=== PATIENT | female | born 1950 | race Caucasian/White ===

== ENCOUNTER → 2017-04-01 | Outpatient (CLI) | payer MEDICARE ==
[~2017-04-01] MED LIST: CALC600T60 PO; CALCCHW19 PO; LISI-542 PO; PANT40TA2 PO; PROAAER10 INH; VITA20008 PO
--- NOTE | 2017-04-01 14:31 | REP ---
Clinical: Cough . Comparison: 08/07/2013 . Technique: PA and lateral. Findings: The mediastinum and cardiac silhouette are normal. The lung perez are clear and without acute consolidation, effusion, or pneumothorax. The skeletal structures are intact and normal. Impression: 1. No acute cardiopulmonary process. Signed by Sreekanth Chun MD 04/01/2017 02:23 P
== END ==
LOC: M WUC 13:20
PROVIDERS: ATTEND Physician Assistant
DX: R05 Cough (principal)

== ENCOUNTER 2017-06-01 06:36 | Day surgery (SDC) | payer MEDICARE ==
--- NOTE | 2017-05-20 22:54 | CR ---
DATE OF CONSULTATION: 05/10/2017 DATE OF PLANNED ADMISSION: 06/01/2017 REFERRING PHYSICIAN: Dr. Light REASON FOR CONSULTATION: Right cataract extraction 06/01/2017 at [facility]. Dear Dr. Light, Thank you for asking me to see Ms. Vicki Garsia in consultation prior to her cataract extraction. She is as you know, a 66-year-old female with past medical history of hypertension, hyperlipidemia, presenting for preop optimization. The patient reports she has had recurrent bronchitis, originally seen in Urgent Care 03/08/2017; treated with prednisone, clarithromycin, and ProAir. She believes she recovered, but relapsed 04/01/2017 and was seen in Urgent Care again and placed on prednisone. She reports she believes she improved at that point too, but she is again coughing, sneezing rhinitis. She denies any fevers or chills. She denies any chest pain. She is easily dyspneic and quite inactive, which she reports is her normal way of life particularly in the summer time when [place] social[place]. She admits that she smokes at least eight cigarettes a day since she was 12-year-old. She was given a ProAir at one of urgent care visits. She has not been using this. The patient has hypertension. Denies any chest pain or palpitations. The patient has had a decline in her vision. She has previously been seen by neurology as well as ophthalmology and of course is proceeding with the cataract extraction. Patient has history of dyspepsia, is on pantoprazole with good results. The patient otherwise denies any nausea or vomiting, change in bowels. She has occasional arthritic symptoms, but has no other new complaints. PAST MEDICAL HISTORY: 1. Hyperlipidemia. 2. Osteoarthritis, degenerative joint disease (DJD). 3. Varicose veins. 4. Tobacco abuse. 5. Post laparoscopic appendectomy. 6. Osteopenia with a history of fractures. 7. Hypertension. MEDICATIONS: The patient's medications are calcium plus D daily, vitamin D3 2000 daily, lisinopril HCT 10/12.5 daily, pantoprazole 40 mg daily, Tylenol as needed (p.r.n.). SOCIAL HISTORY: She is retired from [employer], civilian, single; smokes the eight cigarettes a day, occasional beer. FAMILY HISTORY: Father at 59 of stroke. He had coronary artery disease (CAD). Mother at 78 in a motor vehicle accident. She had heart disease and hypertension. Brother had COPD and an aneurysm. DRUG ALLERGIES: Penicillin. PHYSICAL EXAMINATION: She is an overweight female in no acute distress. Vital signs are: Weight 172 with a BMI of 32, blood pressure 120/70 with a heart rate of 59. Her O2 sat is 95%. No acute distress but she is easily dyspneic. HEENT: Head is normocephalic. Neck is supple. She wears eyeglasses. She has an upper plate. Vision grossly normal. Tympanic membranes normal. Posterior pharynx without inflammation. Neck is supple. No thyromegaly, JVD or carotid bruits. Respiratory: Breath sounds are coarse with expiratory wheezes and inspiratory rhonchi. Breast examination: Mild fibroglandular breast disease. Cardiovascular: Regular rate and rhythm. No murmur, rub, gallop. Abdomen: Soft, nontender. No hepatosplenomegaly. Extremities: Some early OA changes. No pitting edema. No cyanosis or clubbing. Neurologic: Alert and oriented. Cranial nerves II-XII are intact. LABORATORY DATA: Normal med profile, CBC. EKG 05/10/2017 sinus bradycardia, rate of 59, axis of 55 degrees, normal WA, QRS, QTC interval, unchanged from previous EKG. IMPRESSION: Ms. Vicki Garsia 66-year-old female with multiple cardiovascular risk factors including hypertension, tobacco abuse, age, hyperlipidemia, has no signs or symptoms indicative of cardiovascular ischemia. However, is dyspneic and will be evaluated and treated as below. RECOMMENDATIONS: Probable COPD. Start ProAir 2 puffs four times a day. Tobacco cessation recommended. Spirometry scheduled. Exceptionally long acting medications and will be optimized prior to surgical intervention. This dictation will have an addendum after spirometry 05/17/2017. The patient just had chest x-ray at Urgent Care which was obtained 04/01/2017 and shows no pathology. Hypertension. Hold lisinopril HCT morning of surgery. Hyperlipidemia. Consider statin intermediate. Hiatal hernia. Take pantoprazole morning of surgery. Osteopenia. Hold calcium in the morning of surgery. Thank you very much for this consultation. Please call with any questions or concerns. ADDENDUM: 05/27/2017, ilsha Addendum to the preoperative consultation done 05/10/2017 on Vicki Garsia, date of 1950, medical registration number [id number]. Ms. Vicki Garsia was seen in consultation on 05/20/2017 and noted to be dyspneic. The patient was evaluated on 05/17/2017 with spirometry, which showed a FVC of 2.28, 80% of predicted and FEV-1 of 1.26, 58% of predicted and FEV-1 to FVC of 0.55. There was only 10% improvement in the FEV-1 after bronchodilation. The study was felt to be consistent with chronic obstructive pulmonary disease (COPD). The patient was empirically placed on Incruse Ellipta one inhaler a day in addition to her bronchodilator, ProAir two puffs four times a day. The patient is seen in followup on 05/26/2017, at which time clinically she reports she is significantly improved. Her shortness of breath, breathing, coughing, sputum production is much improved. She is compliant with the Incruse daily and ProAir two puffs four times a day. Her exercise tolerance and dyspnea have improved. Patient's medication list was reviewed and updated. As per previous consultation, only the Incruse and ProAir have been added. PHYSICAL EXAMINATION No acute distress. Vital signs are: Weight 173, oxygen saturation 97%, blood pressure 134/66. Her heart rate is 80. Physical examination is unchanged compared to 05/20/2017 except her breath sounds are clear. She does have an occasional wet cough but no expiratory or inspiratory wheezes or rhonchi. Laboratory data as before, spirometry as above. IMPRESSION: Ms. Vicki Garsia is a 66-year-old female with multiple cardiovascular risk factors, as dictated previously, including hypertension, tobacco abuse, age, hyperlipidemia, had no signs or symptoms of cardiac ischemia and now that her dyspnea has been evaluated and treated, she is felt to be optimized and at low risk for cardiovascular complications. RECOMMENDATIONS: As before except new diagnosis of: 1. COPD. Continue Incruse Ellipta daily, ProAir two puffs four times a day until surgery, including morning of surgery and through surgery and then wean off the ProAir slowly over the next several weeks until using only as needed. The patient has followup in this office 07/11/2017. Please call with any questions or concerns.
[~2017-06-01] VITALS: Ht 157.5 cm; Wt 78.0 kg
[~2017-06-01 06:36] MED LIST changes: +ACETAMINOPHEN 325 MG TAB PO PRN; +ACETYLCHOLINE OPHTH SOLN 1% 2ML (MIOCHOL-E) As Ordered ONE; -CALC600T60 PO; +CEFUROXIME 1MG/0.1ML INTRACAMERAL INJ As Ordered ONE; +HEALON DUET (HEALON 10MG/ML 0.55ML & HEALON ENDOCOAT 30MG/ML 0.85ML) As Ordered ONE; +LIDOCAINE 1% SDV 5 ML VIAL As Ordered ONE; +POVIDONE-IODINE 5% OPHTH PREP SOL 30ML As Ordered ONE; -PROAAER10 INH; -VITA20008 PO
[2017-06-01] MEDS ORDERED: LR 1,000 ML IV ONE (06:45)
[2017-06-01] MEDS ORDERED: PHENYLEPHRINE 2.5% OPHTH SOL 2ML As Ordered ONE (06:47)
[2017-06-01] MEDS ORDERED: CYCLOPENTOLATE 2% OPHTH SOLN 2ML BTL As Ordered ONE (06:47)
[2017-06-01] MEDS ORDERED: TROPICAMIDE 1% OPHTH SOLN 2ML As Ordered ONE (06:47)
[2017-06-01] MEDS ORDERED: OFLOXACIN 0.3 % (OCUFLOX) OPTH SOL 5ML As Ordered ONE (06:47)
[2017-06-01] MEDS ORDERED: LIDOCAINE 3.5 % 1ML OPHTH TOPICAL GEL OU ONE (07:00)
[2017-06-01] MEDS ORDERED: TROPICAMIDE 1% OPHTH SOLN 2ML OD ONE (07:00)
[2017-06-01] MEDS ORDERED: PHENYLEPHRINE 2.5% OPHTH SOL 2ML OD ONE (07:00)
[2017-06-01] MEDS ORDERED: CYCLOPENTOLATE 2% OPHTH SOLN 2ML BTL OD ONE (07:00)
[2017-06-01] MEDS ORDERED: OFLOXACIN 0.3 % (OCUFLOX) OPTH SOL 5ML OD ONE (07:00)
[2017-06-01] MEDS ORDERED: PROPARACAINE 0.5% OPHTH SOL 15ML OD PRN (07:01)
[2017-06-01] MEDS ORDERED: VITA20008 PO (07:17)
[2017-06-01] MEDS ORDERED: PROAAER10 INH (07:17)
[2017-06-01] MEDS ORDERED: CALC600T60 PO (07:17)
[2017-06-01] MEDS ORDERED: BALANCED SALT IRRIGATION SOLUTION 500ML BAG (FOR OR EYE MACHINE) As Ordered ONE (07:18)
[2017-06-01] MEDS ORDERED: LR 500 ML ONE (07:24)
[2017-06-01] MEDS ORDERED: MIDAZOLAM INJ 2 MG/2 ML VIAL (J2250) As Ordered ONE (08:13)
[2017-06-01] MEDS ORDERED: fentaNYL 100 MCG/2 ML INJECTION (J3010) As Ordered ONE (08:13)
[2017-06-01] MEDS ORDERED: TRIMETHOBENZAMIDE 300 MG CAP PO PRN (08:45)
[2017-06-01] MEDS ORDERED: KETOROLAC 0.5% OPHTH SOLN OD ONE (08:45)
[2017-06-01] MEDS ORDERED: AcetaZOLAMIDE 500 MG ER CAP PO ONE (08:45)
[2017-06-01 09:05] VITALS: BP 127/65
--- NOTE | 2017-06-01 10:19 | RO ---
DATE OF PROCEDURE: 06/01/2017 PREPROCEDURE DIAGNOSIS: Age-related nuclear cataract, right eye. POSTPROCEDURE DIAGNOSIS: Age-related nuclear cataract, right eye. PROCEDURE PERFORMED: Phacoemulsification and posterior chamber intraocular lens implantation, right eye. The lens used is an [id number] 70.0 diopter. SURGEON: Meaghan Light MD PROOF OPERATOR: ANESTHESIA: Topical with sedation. DESCRIPTION OF PROCEDURE: The patient was prepped and draped in the usual fashion. A lid speculum was placed between the lids. The eye was fixated. A stab incision was made to the anterior chamber, and 1% nonpreserved lidocaine was instilled. Then, viscoelastic was instilled. The eye was refixated. A 2.75 mm sapphire keratome was used to make a clear corneal temporal limbal incision. Capsulorrhexis was begun with a 30-gauge bent needle and then carried out in a circular fashion with capsulorrhexis forceps. The lens was hydrodissected, and then the phacoemulsification unit was used to make a groove in the nucleus in two meridians. The nucleus was then cracked into four quadrants. Each quadrant was removed with the phacoemulsification unit. Any remaining cortex was removed with the irrigation and aspiration (I and A) unit. Capsular bag was refilled with viscoelastic. A posterior chamber intraocular lens was placed in the capsular bag without difficulty. Any remaining viscoelastic was removed with the I and A unit. The wound was hydrated, and Miochol and cefuroxime were instilled into the anterior chamber. The patient tolerated the procedure well and went to the recovery room in stable condition.
== END 2017-06-01 09:15 | disposition home or self-care (01) ==
LOC: M SDC 06:36
PROVIDERS: ATTEND Ophthalmology
DX: H25.11 Age-related nuclear cataract, right eye (principal); I10 Essential (primary) hypertension; Z88.0 Allergy status to penicillin; F17.210 Nicotine dependence, cigarettes, uncomplicated; Z79.899 Other long term (current) drug therapy
CPT/HCPCS: 66984; J2250; J3010; V2632

== ENCOUNTER → 2017-11-07 | Outpatient (CLI) | payer MEDICARE | LOC: M WHC 11:06 | DX: Z12.31 Encounter for screening mammogram for malignant neoplasm of breast (principal); M81.0 Age-related osteoporosis without current pathological fracture; Z13.820 Encounter for screening for osteoporosis; M85.80 Other specified disorders of bone density and structure, unspecified site | CPT/HCPCS: 77067 ==

== ENCOUNTER → 2018-11-28 | Outpatient (CLI) | payer MEDICARE ==
[~2018-11-28] MED LIST changes: -ACETAMINOPHEN 325 MG TAB PO PRN; -ACETYLCHOLINE OPHTH SOLN 1% 2ML (MIOCHOL-E) As Ordered ONE; +CALC600T60 PO; -CEFUROXIME 1MG/0.1ML INTRACAMERAL INJ As Ordered ONE; -HEALON DUET (HEALON 10MG/ML 0.55ML & HEALON ENDOCOAT 30MG/ML 0.85ML) As Ordered ONE; -LIDOCAINE 1% SDV 5 ML VIAL As Ordered ONE; -PANT40TA2 PO; +PANT40TA3 PO; -POVIDONE-IODINE 5% OPHTH PREP SOL 30ML As Ordered ONE; +PROAAER10 INH; +VITA20008 PO
--- NOTE | 2018-11-28 10:24 | REPMRS ---
Patient History The patient states she had a clinical breast exam in 09/2018. Patient is postmenopausal and is nulliparous. No known family history of cancer. No Hormone Replacement Therapy 3D TOMOSYNTHESIS WAS PERFORMED. Digital Woman Screen Mammo: November 28, 2018 - Exam #: [id number] Bilateral CC and MLO view(s) were taken. Technologist: Meaghan Morales Technologist Prior study comparison: November 07, 2017, digital woman screen mammo performed at [facility]. August 13, 2016, digital woman screen mammo performed at [facility] to [facility]. FINDINGS: There are scattered fibroglandular densities. There has been no change in the appearance of the mammogram from the prior studies. There is a mild amount of residual fibroglandular tissue which is fairly symmetric. There is no interval development of dominant mass, architectural distortion, or clustered microcalcification suggestive of malignancy. Assessment: BI-RADS/ACR category 1 mammogram. Negative Mammogram. Recommendation Routine screening mammogram in 1 year (for women over age 40). This mammogram was interpreted with the aid of an FDA-approved computer-aided dectection system. Electronically Signed By: Jai Ortez MD 11/28/18 [id number]
== END ==
LOC: M WHC 09:04
PROVIDERS: ATTEND Nurse Practitioner Family
DX: Z12.31 Encounter for screening mammogram for malignant neoplasm of breast (principal)

== ENCOUNTER → 2020-02-21 | Outpatient (CLI) | payer MEDICARE ==
--- NOTE | 2020-02-21 12:26 | REPMRS ---
Patient History The patient states she had a clinical breast exam in 2019. No known family history of cancer. No Hormone Replacement Therapy Digital Woman Screen Mammo: February 21, 2020 - Exam #: [id number] Bilateral CC and MLO view(s) were taken. Technologist: Lucita Hartley, Technologist Prior study comparison: November 28, 2018, bilateral digital woman screen mammo performed at [facility]. November 07, 2017, digital woman screen mammo performed at [facility]. August 13, 2016, digital woman screen mammo performed at [facility]. FINDINGS: There are scattered fibroglandular densities. The Volpara volumetric breast density category is:B. There has been no change in the appearance of the mammogram from the prior studies. There is a mild amount of scattered fibroglandular density which is fairly symmetric. There is no interval development of dominant mass, architectural distortion, or grouped microcalcification suggestive of malignancy. 3-D tomosynthesis shows no additional findings. Assessment: BI-RADS/ACR category 1 mammogram. Negative Mammogram. Recommendation Routine screening mammogram of both breasts in 1 year (for women over age 40). This patient's Lifetime Breast Cancer Risk is estimated at 5.6 %. This mammogram was interpreted with the aid of an FDA-approved computer-aided dectection system. Electronically Signed By: Lamonte Dye MD 02/21/20 [id number]
--- NOTE | 2020-02-27 09:35 | DEXA ---
AP SPINE L1 - L4 1.040 -1.2 0.4 LT FEMUR TOTAL 0.785 -1.8 -0.3 LT NECK 0.725 -2.3 -0.5 RT FEMUR TOTAL 0.798 -1.7 -0.2 RT NECK 0.728 -2.2 -0.5 TOTAL BODY TOTAL OTHER COMMENTS: There is low bone density of the spine and hips. The decreased density of the spine does represent a significant change. The decreased density of the left hip does represent a significant change. The increased density of the right hip does not represent a significant change. The density of the spine has decreased 5.2% since the initial exam on 03/14/2002. The decreased 3.4% since the most recent exam on 11/07/2017. The density of the left hip has decreased 15.3% since the initial exam on 03/14/2002. The density of the left hip has decreased 4.4% since the most recent exam on 11/07/2017. The density of the right hip has decreased 8.8% since the initial exam on 03/14/2002. The density of the right hip has increased 1.8% since the most recent exam on 11/07/2017. FOLLOW-UP: Recommendation for the next bone density exam: 2 years. TETE
== END ==
LOC: M WHC 10:28
PROVIDERS: ATTEND Nurse Practitioner Family
DX: Z12.31 Encounter for screening mammogram for malignant neoplasm of breast (principal); M85.851 Other specified disorders of bone density and structure, right thigh; M85.852 Other specified disorders of bone density and structure, left thigh; M85.88 Other specified disorders of bone density and structure, other site

== ENCOUNTER → 2021-09-02 | Outpatient (CLI) | payer MEDICARE ==
[~2021-09-02] MED LIST changes: -LISI-542 PO; +LISI-898 PO; +PANT40TA29 PO; -PANT40TA3 PO
--- NOTE | 2021-09-02 13:43 | REP ---
INDICATION: PAIN COMPARISON: None. TECHNIQUE: Five views right knee. FINDINGS: There is no evidence of acute fracture, dislocation, or intrinsic bone disease.There is mild joint space narrowing and subchondral sclerosis diffusely. There is mild spurring of the femoral condyles and tibial plateaus. Mild spurring of the lateral patellar facet. There is no radiographic evidence of a significant joint effusion. IMPRESSION: No fracture or dislocation. Mild diffuse degenerative changes. <Electronically signed by Jai Ortez > 09/02/21 [id number]
== END ==
LOC: M WUC 11:39
PROVIDERS: ATTEND Registered Nurse
DX: M25.561 Pain in right knee (principal)

== ENCOUNTER → 2022-07-18 | Outpatient (CLI) | payer MEDICARE ==
[~2022-07-18] MED LIST changes: -LISI-898 PO; +LISI5TAB11 PO
== END ==
LOC: M LABSMTC 09:27
PROVIDERS: ATTEND Orthopaedic Surgery
DX: Z20.822 Contact with and (suspected) exposure to COVID-19 (principal)

== ENCOUNTER → 2023-07-12 | Outpatient (REF) | payer MEDICARE | LOC: M LAB REF 14:29 | PROVIDERS: ATTEND Nurse Practitioner Family | DX: R19.7 Diarrhea, unspecified (principal) ==

== ENCOUNTER 2024-08-09 10:13 | Inpatient (IN) | payer MEDICARE ==
[~2024-08-09] VITALS: Ht 157.5 cm; Wt 67.1 kg
[2024-08-09] MEDS ORDERED: ATOR1TAB19 PO (10:29)
[2024-08-09 11:13] LABS: BASO % 0.2 % (0.0-1.0); EOS % 0.1 % (0.0-3.0); HEMATOCRIT 37.6 % (36.0-47.0); HEMOGLOBIN 12.4 g/dl (12.0-15.5); LYMPH # 0.7 10^3/uL (1.5-5.0); LYMPH % 4.5 % (24.0-44.0); MEAN CORPUSCULAR HEMOGLOBIN 30.5 pg (27.0-33.0); MEAN CORPUSCULAR VOLUME 92.6 fl (80.0-96.0); MONO # 1.6 10^3/uL (0.0-0.8); MONO % 9.8 % (2.0-8.0); PLATELET COUNT, AUTOMATED 286 10^3/uL (150-450); RED BLOOD COUNT 4.06 10^6/uL (4.00-5.40); WHITE BLOOD COUNT 16.5 10^3/uL (4.0-10.0)
[2024-08-09 11:46] LABS: ALBUMIN 2.9 G/DL (3.2-5.2); BILIRUBIN,DIRECT 0.3 MG/DL (<0.4); BILIRUBIN,TOTAL 0.7 MG/DL (0.3-1.2); TOTAL PROTEIN 7.2 G/DL (5.7-8.2)
[2024-08-09] MEDS ORDERED: HOME MED LIST COMPLETE! XX SCH (12:55)
[2024-08-09] MEDS ORDERED: ISOVUE-370 76% 100ML VIAL As Ordered ONE (14:04)
[2024-08-09] MEDS ORDERED: ACETAMINOPHEN *IV* 1,000 MG in IV 1 EA IV ONE (15:15)
[2024-08-09] MEDS: ACETAMINOPHEN 325 MG TAB PO ONE (15:20)
[2024-08-09] MEDS: CIPROFLOXACIN 400 MG in IV 1 EA IV ONE (15:27)
[2024-08-09] MEDS: metroNIDAZOLE 500 MG in IV 1 EA IV ONE (16:28)
[2024-08-09] MEDS: NS 1,000 ML IV ONE (16:35)
[2024-08-09] MEDS ORDERED: NALOXONE INJ 0.4MG/1ML VIAL IV PRN (16:45)
[2024-08-09] MEDS ORDERED: MORPHINE 4 MG/ML 1ML VIAL IV PRN (16:45)
[2024-08-09] MEDS ORDERED: PERCOCET 5MG/325MG TAB PO PRN ×2 (16:45)
[2024-08-09 17:51] VITALS: BP 153/72; TEMP 98.9; O2SAT 95
[2024-08-09] MEDS: NS 1,000 ML IV SCH (18:33)
[2024-08-09] MEDS: ACETAMINOPHEN *IV* 1,000 MG in IV 1 EA IV ONE (18:33)
[2024-08-09 20:00] VITALS: BP 117/60; TEMP 98.2; O2SAT 95
[2024-08-10] MEDS: KETOROLAC 30 MG/ML 1ML VIAL IV SCH
[2024-08-10] MEDS: metroNIDAZOLE 500 MG in IV 1 EA IV SCH (01:00)
[2024-08-10] MEDS: CIPROFLOXACIN 400 MG in IV 1 EA IV SCH (03:22)
[2024-08-10] MEDS: MORPHINE 2 MG/ML 1ML VIAL IV PRN (03:26)
[2024-08-10 04:00] VITALS: BP 117/59; TEMP 100.4; O2SAT 93
[2024-08-10 05:55] VITALS: TEMP 100.2
[2024-08-10] MEDS: ACETAMINOPHEN *IV* 500 MG in IV 1 EA IV PRN (06:04)
[2024-08-10 06:15] LABS: BASO # 0.1 10^3/uL (0.0-0.2); BASO % 0.3 % (0.0-1.0); EOS % 0.1 % (0.0-3.0); HEMATOCRIT 31.4 % (36.0-47.0); LYMPH # 0.8 10^3/uL (1.5-5.0); LYMPH % 5.2 % (24.0-44.0); MEAN CORPUSCULAR HEMOGLOBIN 30.2 pg (27.0-33.0); MEAN CORPUSCULAR HGB CONC 33.1 g/dl (32.0-36.5); MEAN CORPUSCULAR VOLUME 91.3 fl (80.0-96.0); MONO # 1.5 10^3/uL (0.0-0.8); MONO % 9.9 % (2.0-8.0); NEUTROPHILS # 12.7 10^3/uL (1.5-8.5); PLATELET COUNT, AUTOMATED 247 10^3/uL (150-450); RED BLOOD COUNT 3.44 10^6/uL (4.00-5.40); WHITE BLOOD COUNT 15.1 10^3/uL (4.0-10.0)
[2024-08-10 06:28] LABS: HEMOGLOBIN 10.4 g/dl (12.0-15.5)
[2024-08-10 06:34] LABS: INR 1.14; PARTIAL THROMBOPLASTIN TIME 37.2 SECONDS (24.8-34.2); PROTHROMBIN TIME 14.9 SECONDS (12.5-14.5)
[2024-08-10 06:42] LABS: BLOOD UREA NITROGEN 12 MG/DL (9-23); CALCIUM LEVEL 9.2 MG/DL (8.3-10.6); CARBON DIOXIDE LEVEL 26 MMOL/L (20-31); CHLORIDE LEVEL 105 MMOL/L (98-107); CREATININE FOR GFR 0.72 MG/DL (0.55-1.30); GLOMERULAR FILTRATION RATE > 60.0 (>39); GLUCOSE, FASTING 92 MG/DL (74-106); POTASSIUM SERUM 3.8 MMOL/L (3.5-5.1); SODIUM LEVEL 139 MMOL/L (136-145)
[2024-08-10 06:58] VITALS: TEMP 99.3
[2024-08-10 07:53] VITALS: BP 117/59; TEMP 98.6; O2SAT 94
[2024-08-10 12:00] VITALS: BP 116/59; TEMP 98.2; O2SAT 97
[2024-08-10] MEDS ORDERED: LIDOCAINE 1% MDV 20ML VIAL As Ordered ONE (16:06)
[2024-08-10] MEDS: KCL 10MEQ IN D5/0.45NS 1000ML 1,000 ML IV SCH (17:43)
[2024-08-10 19:32] VITALS: BP 142/72; TEMP 97.6; O2SAT 97
[2024-08-11 03:56] VITALS: BP 115/52; TEMP 97.5; O2SAT 97
[2024-08-11 04:47] LABS: BASO % 0.4 % (0.0-1.0); EOS # 0.1 10^3/uL (0.0-0.5); EOS % 1.7 % (0.0-3.0); HEMATOCRIT 30.4 % (36.0-47.0); HEMOGLOBIN 9.7 g/dl (12.0-15.5); LYMPH % 13.2 % (24.0-44.0); MEAN CORPUSCULAR HEMOGLOBIN 29.2 pg (27.0-33.0); MEAN CORPUSCULAR HGB CONC 31.9 g/dl (32.0-36.5); MEAN CORPUSCULAR VOLUME 91.6 fl (80.0-96.0); MONO # 0.7 10^3/uL (0.0-0.8); MONO % 9.3 % (2.0-8.0); NEUTROPHILS # 5.4 10^3/uL (1.5-8.5); NEUTROPHILS % 74.8 % (36.0-66.0); PLATELET COUNT, AUTOMATED 245 10^3/uL (150-450); RED BLOOD COUNT 3.32 10^6/uL (4.00-5.40); WHITE BLOOD COUNT 7.2 10^3/uL (4.0-10.0)
[2024-08-11 05:11] LABS: BLOOD UREA NITROGEN 18 MG/DL (9-23); CARBON DIOXIDE LEVEL 27 MMOL/L (20-31); CHLORIDE LEVEL 107 MMOL/L (98-107); CREATININE FOR GFR 0.89 MG/DL (0.55-1.30); GLOMERULAR FILTRATION RATE > 60.0 (>39); GLUCOSE, FASTING 121 MG/DL (74-106); SODIUM LEVEL 138 MMOL/L (136-145)
[2024-08-11] MEDS ORDERED: CIPR-249 PO (10:33)
[2024-08-11] MEDS ORDERED: BACI1CAP PO (10:33)
[2024-08-11] MEDS ORDERED: METR-265 PO (10:33)
[2024-08-11] MEDS: SENOKOT S TAB PO ONE (11:31)
[2024-08-11] MEDS: LACTULOSE 20GM/30ML SYRUP UDC PO ONE (11:32)
[2024-08-11] MEDS ORDERED: TRAM50TA2 PO ×2 (11:34→11:40)
[2024-08-11] MEDS ORDERED: SENO8.6T10 PO (11:34)
[2024-08-11] MEDS ORDERED: LACT20EL PO (11:34)
[2024-08-11 13:19] VITALS: BP 154/70
[2024-08-11] MEDS: lisinopriL 5 MG TAB PO ONE (13:19)
[2024-08-12] MEDS ORDERED: lisinopriL 5 MG TAB PO SCH (09:00)
== END 2024-08-11 13:51 | disposition home or self-care (01) | DRG 872 ==
LOC: M ED 10:13 → M ED INP 16:00 → M MSPAV 18:09
PROVIDERS: ADMIT General Practice; ATTEND General Practice
PROC: 0D9N3ZZ Drainage of Sigmoid Colon, Percutaneous Approach (ICD-10-PCS; principal; 2024-08-10)
DX: A41.9 Sepsis, unspecified organism (principal); K57.20 Diverticulitis of large intestine with perforation and abscess without bleeding; K29.70 Gastritis, unspecified, without bleeding; Z53.8 Procedure and treatment not carried out for other reasons; K21.9 Gastro-esophageal reflux disease without esophagitis; I10 Essential (primary) hypertension; E78.5 Hyperlipidemia, unspecified; N28.1 Cyst of kidney, acquired; F17.200 Nicotine dependence, unspecified, uncomplicated; Z79.899 Other long term (current) drug therapy; Z88.0 Allergy status to penicillin

== ENCOUNTER → 2024-08-17 | Outpatient (REF) | payer MEDICARE ==
[~2024-08-17] MED LIST changes: +ATOR1TAB19 PO; +BACI1CAP PO; +CIPR-249 PO; +LACT20EL PO; +METR-265 PO; +SENO8.6T10 PO; +TRAM50TA2 PO
[2024-08-17 13:15] LABS: PERCENT SATURATION 43.1 % (13.2-45.0)
[2024-08-17 13:18] LABS: FERRITIN 261.2 NG/ML (7.3-270.7)
== END ==
LOC: M LAB REF 12:40
PROVIDERS: ATTEND Internal Medicine
DX: D64.9 Anemia, unspecified (principal)

== ENCOUNTER → 2024-09-13 | Outpatient (CLI) | payer MEDICARE | LOC: M PLARAD 13:06 | PROVIDERS: ATTEND Internal Medicine | DX: D35.02 Benign neoplasm of left adrenal gland (principal) ==

== ENCOUNTER 2024-10-18 11:10 | Day surgery (SDC) | payer MEDICARE ==
[~2024-10-18] VITALS: Ht 157.5 cm; Wt 64.5 kg
[~2024-10-18 11:10] MED LIST changes: +GNP250TA9 PO; +LISI10TA24 PO; +NS 250 ML IV ONE
[2024-10-18 12:11] VITALS: TEMP 97.2
[2024-10-18 12:30] VITALS: BP 121/60; O2SAT 98
== END 2024-10-18 12:32 | disposition home or self-care (01) ==
LOC: M OPP 11:10
PROVIDERS: ATTEND Surgery
DX: K57.30 Diverticulosis of large intestine without perforation or abscess without bleeding (principal); K57.32 Diverticulitis of large intestine without perforation or abscess without bleeding; Z88.0 Allergy status to penicillin; Z79.899 Other long term (current) drug therapy; F17.210 Nicotine dependence, cigarettes, uncomplicated

== ENCOUNTER → 2025-01-02 | Outpatient (CLI) | payer MEDICARE ==
[~2025-01-02] MED LIST changes: -NS 250 ML IV ONE
== END ==
LOC: M RAD 13:37
PROVIDERS: ATTEND Internal Medicine
DX: Z12.2 Encounter for screening for malignant neoplasm of respiratory organs (principal); F17.210 Nicotine dependence, cigarettes, uncomplicated; J84.10 Pulmonary fibrosis, unspecified; J43.2 Centrilobular emphysema; I70.0 Atherosclerosis of aorta; I25.10 Atherosclerotic heart disease of native coronary artery without angina pectoris; D35.02 Benign neoplasm of left adrenal gland

== ENCOUNTER 2025-07-18 06:43 | Day surgery (SDC) | payer MEDICARE ==
[~2025-07-18] VITALS: Ht 157.5 cm; Wt 65.8 kg
[~2025-07-18 06:43] MED LIST changes: +PHENYLEPHRINE 10% OPHTH SOL 5ML OS PRN
[2025-07-18] MEDS ORDERED: LR 1,000 ML IV SCH (07:10)
[2025-07-18] MEDS ORDERED: MIDAZOLAM INJ 2 MG/2 ML VIAL As Ordered ONE (07:20)
[2025-07-18] MEDS: LIDOCAINE 3.5% 1 ML OPHTH TOPICAL GEL OU ONE (07:32)
[2025-07-18] MEDS: PHENYLEPHRINE 2.5% OPHTH SOL 2ML OS SCH (07:32)
[2025-07-18] MEDS: CYCLOPENTOLATE 1% OPHTH SOLN 2 ML BTL OS SCH (07:32)
[2025-07-18] MEDS: TROPICAMIDE 1% OPHTH SOLN 15ML OS SCH (07:32)
[2025-07-18] MEDS: OFLOXACIN 0.3 % (OCUFLOX) OPTH SOL 5ML OS ONE (07:32)
[2025-07-18] MEDS: LIDOCAINE 1% SDV 5 ML VIAL As Ordered ONE (08:26)
[2025-07-18] MEDS: CEFUROXIME 1 MG/0.1 ML INTRACAMERAL INJ As Ordered ONE (08:27)
[2025-07-18] MEDS: BSS IRRIG/VANCO(10MG)/TOBRA(5MG)/EPINEPH(1:1000-0.5CC)500ML BAG-ORONLY As Ordered ONE (08:27)
[2025-07-18 08:40] VITALS: BP 139/63; TEMP 97.2; O2SAT 97
== END 2025-07-18 08:58 | disposition home or self-care (01) ==
LOC: M SDC 06:43
PROVIDERS: ATTEND Ophthalmology
DX: H25.12 Age-related nuclear cataract, left eye (principal); I10 Essential (primary) hypertension; E78.00 Pure hypercholesterolemia, unspecified; K21.9 Gastro-esophageal reflux disease without esophagitis; Z79.899 Other long term (current) drug therapy; F17.210 Nicotine dependence, cigarettes, uncomplicated; Z98.41 Cataract extraction status, right eye; Z90.49 Acquired absence of other specified parts of digestive tract; Z88.0 Allergy status to penicillin
CPT/HCPCS: 66984; J0697; J2250; J3010; V2632